=== PATIENT | female | born 1950 | race Caucasian/White ===

== ENCOUNTER 2024-01-16 10:58 | Day surgery (SDC) | payer MEDICARE, OTHER ==
[2024-01-16] MEDS ORDERED: Xylocaine-Mpf 2% 5 Ml Vial IJ ONE (10:59)
[2024-01-16] MEDS ORDERED: DIPRIVAN 200 MG/20 ML IV ONE (12:46)
--- NOTE | 2024-01-16 18:46 | XRAY ---
Indication: Bilateral L4-S1 MBB. Intraoperative fluoroscopy provided for 9 seconds. Single digital spot image submitted for interpretation demonstrates posterior needle tips projecting over the expected left and right L4-S1 nerve roots. Correlate with intraoperative findings/report.
--- NOTE | 2024-01-16 19:23 | XRAY ---
9 seconds of fluoroscopy was used in surgery for a bilateral L4-S1 MBB.
== END 2024-01-16 13:37 | disposition home or self-care (01) ==
LOC: SDC-PAIN 10:58
PROVIDERS: ATTEND Psychiatry & Neurology Pain Medicine
DX: M47.816 Spondylosis without myelopathy or radiculopathy, lumbar region (principal)
CPT/HCPCS: 64493; 64494; 72020; 77002; J2704

== ENCOUNTER 2024-04-09 12:49 | Day surgery (SDC) | payer MEDICARE ==
[2024-04-09] MEDS ORDERED: BUPIVACAINE 0.5% VIAL IJ ONE (12:50)
[2024-04-09] MEDS ORDERED: propofoL IV ONE (14:05)
--- NOTE | 2024-04-09 15:20 | XRAY ---
Indication: Bilateral L4-S1 MBB. Intraoperative fluoroscopy provided for 10 seconds. Single digital spot image submitted for interpretation demonstrates posterior needle tips projecting over expected left and right L4-S1 nerve roots. Correlate with intraoperative findings/report.
--- NOTE | 2024-04-09 15:20 | XRAY ---
10 seconds of fluoroscopy was used in surgery for a bilateral L4-S1 MBB.
== END 2024-04-09 14:40 | disposition home or self-care (01) ==
LOC: SDC-PAIN 12:49
PROVIDERS: ATTEND Psychiatry & Neurology Pain Medicine
DX: M47.816 Spondylosis without myelopathy or radiculopathy, lumbar region (principal)
CPT/HCPCS: 64493; 64494; 72020; 77002; J2704

== ENCOUNTER 2024-04-30 10:42 | Day surgery (SDC) | payer MEDICARE, OTHER ==
[2024-04-30] MEDS ORDERED: BUPIVACAINE 0.5% VIAL IJ ONE (10:43)
[2024-04-30] MEDS ORDERED: Depo-Medrol 40 MG/ML IM ONE (10:43)
[2024-04-30] MEDS ORDERED: LIDOCAINE HCL 1% AMPUL 5 ML IJ ONE (10:43)
[2024-04-30] MEDS ORDERED: Lactated Ringers 500 ML IV ONE (10:54)
[2024-04-30] MEDS ORDERED: propofoL IV ONE (12:41)
--- NOTE | 2024-04-30 13:41 | XRAY ---
Indication: Left L4-S1 RFA. Intraoperative fluoroscopy provided for 23 seconds. 4 digital spot images submitted for interpretation demonstrates posterior needle tips projecting over expected left L4-S1 nerve roots. Correlate with intraoperative findings/report.
--- NOTE | 2024-04-30 14:43 | XRAY ---
23 seconds of fluoroscopy was used in surgery for a left L4-S1 RFA.
== END 2024-04-30 13:23 | disposition home or self-care (01) ==
LOC: SDC-PAIN 10:42
PROVIDERS: ATTEND Psychiatry & Neurology Pain Medicine
DX: M47.817 Spondylosis without myelopathy or radiculopathy, lumbosacral region (principal)
CPT/HCPCS: 64635; 64636; 72100; 77002; 99100; J2704

== ENCOUNTER 2024-05-07 12:42 | Day surgery (SDC) | payer MEDICARE ==
[~2024-05-07 12:42] MED LIST: propofoL IV ONE
[2024-05-07] MEDS ORDERED: BUPIVACAINE 0.5% VIAL IJ ONE (12:43)
[2024-05-07] MEDS ORDERED: Depo-Medrol 40 MG/ML IM ONE (12:43)
[2024-05-07] MEDS ORDERED: LIDOCAINE HCL 1% AMPUL 5 ML IJ ONE (12:43)
[2024-05-07] MEDS ORDERED: Lactated Ringers 500 ML IV ONE (12:50)
[2024-05-07] MEDS ORDERED: propofoL IV ONE (14:03)
--- NOTE | 2024-05-07 15:00 | XRAY ---
Indication: Right L4-S1 RFA. Intraoperative fluoroscopy provided for 26 seconds. 3 digital spot image submitted for interpretation demonstrate posterior needle tips projecting over expected right L4-S1 nerve roots. Correlate with intraoperative findings/report.
--- NOTE | 2024-05-07 16:28 | XRAY ---
26 seconds of fluoroscopy was used in surgery for a right L4-S1 RFA.
== END 2024-05-07 14:42 | disposition home or self-care (01) ==
LOC: SDC-PAIN 12:42
PROVIDERS: ATTEND Psychiatry & Neurology Pain Medicine
DX: M47.816 Spondylosis without myelopathy or radiculopathy, lumbar region (principal)
CPT/HCPCS: 64635; 64636; 72100; 99100; J2704